=== PATIENT | female | born 1990 | race Caucasian/White ===

== ENCOUNTER 2019-11-20 12:20 | Emergency (ER) | payer OTHER ==
[2019-11-20 12:27] VITALS: BP 116/78; PULSE 80; TEMP 98.2; BMI 25.2
[2019-11-20 12:58] LABS: AMORP PHOS 1+ /hpf (NONE SEEN); EPITHELIAL CELLS FEW /hpf; URINE MUCUS 1+
--- NOTE | 2019-11-20 13:12 | PDOC ---
History of Present Illness - General Chief Complaint: Pain Stated Complaint: LEFT PELVIC PAIN Time Seen by Provider: 11/20/19 12:25 - History of Present Illness Initial Comments: 11/20/19 15:34 Chief complaint: Lower abdominal pain HPI: Patient complains of suprapubic and left lower quadrant pain for about 1 week. No nausea vomiting or diarrhea. She has recurrent ovarian cysts diagnosed on ultrasound and CT scan, occurring almost every month, although she had no symptoms during August and September. She has been seen numerous times by program support assistant and has had numerous emergency room visits. Pain medications do not usually help. She voices the desire to have her "cyst removed". Review of systems: As noted above, denies nausea, vomiting, diarrhea. Denies fever/chills, URI symptoms, sore throat, cough, chest pain, shortness of breath , vaginal bleeding or discharge, urinary symptoms including dysuria frequency urgency hesitancy or hematuria. She admits to having a "migraine headache", which occur frequently, for which she takes no specific medication by choice. Past medical history: Recurrent ovarian cysts, IUD since 2018, intolerant to other control measures such as oral contraceptives, implantable contraceptives, and NuvaRing. 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 Family history: Reviewed and noncontributory Physical exam: Alert and oriented well-developed well-nourished no acute distress cooperative, although somewhat hostile, feeling that nobody is able to do anything about her recurrent cysts. She would like them "removed" Afebrile, vital signs normal HEENT normal Neck supple without bruit mass or nodes Chest clear CV regular without murmur rub or gallop Abdomen nondistended. Bowel sounds normal. Soft without mass organomegaly. There is mild tenderness to deep palpation in the suprapubic area, and the right and left lower quadrants. There is no guarding or rebound. There is no CVAT Impression: Recurrent ovarian cyst, rule out UTI. No other sign or symptom of acute peritonitis or other intra-abdominal disease Plan: Urinalysis, test, and ultrasound, further evaluation depending on results. Past History - Past Medical History Allergies/Adverse Reactions: Allergies Allergy/AdvReac Type Severity Reaction Status Date / Time amoxicillin Allergy Hives Verified 11/20/19 12:22 cefoxitin Allergy Hives Verified 11/20/19 12:22 ciprofloxacin [From Cipro] Allergy Hives Verified 11/20/19 12:22 clindamycin Allergy Hives Verified 11/20/19 12:22 gentamicin Allergy Hives Verified 11/20/19 12:22 metronidazole Allergy Hives Verified 11/20/19 12:22 Home Medications: Ambulatory Orders Cetirizine HCl [Zyrtec -] 10 mg PO DAILY PRN 11/20/19 Diclofenac Sodium 75 mg PO BID PRN #20 tablet. 11/20/19 COPD: No Disorders: Yes (ovarian cysts) Other medical history: migraine headaches, seasonal/envtal allergies - Surgical History Cholecystectomy: Yes (11/2018) - Reproductive History Is Patient Now?: No - Psycho Social/Smoking Cessation Hx Smoking History: Never smoked Have you smoked in the past 12 months: No Information on smoking cessation initiated: No Hx Alcohol Use: No *Physical Exam - Vital Signs Last Vital Signs Temp Pulse Resp BP Pulse Ox 98.2 F 80 16 116/78 100 11/20/19 12:20 11/20/19 12:20 11/20/19 12:20 11/20/19 12:20 11/20/19 12:20 ED Treatment Course - ADDITIONAL ORDERS Additional order review: Laboratory Results 11/20/19 11/20/19 12:25 12:25 Urine Color Yellow Urine Appearance Slightly Urine pH >= 9.0 H Urine Protein Trace Urine Glucose (UA) Negative Urine Ketones Negative Urine Blood Negative Urine Nitrite Negative Urine Bilirubin Negative Urine Urobilinogen 0.2 Ur Leukocyte Esterase Trace H Urine RBC Rare Urine WBC 0-2 Ur Transition Epith Cell Few Amorphous Phosphates 1+ Urine Bacteria Few Urine Mucus 1+ Urine HCG, Qual Negative Medical Decision Making - Medical Decision Making 11/20/19 15:42 Urinalysis clear. test negative Ultrasound shows a complex cyst on the right. No free fluid. IUD is in good position. Minimal endometrial reaction The nature of ovarian cyst was discussed with the patient, and it was recommended that she be given stronger pain medication if her pain is not controlled. She refused any additional medication. She was instructed to follow-up with [facility] to discuss other options. Fully ambulatory and in no significant pain or other distress at discharge. Told to return to the ER if the pain worsened or if associated symptoms such as fever, chills, nausea, vomiting, diarrhea developed. Discharge - Discharge Information Problems reviewed: Yes Clinical Impression/Diagnosis: Ovarian cyst, complex Condition: Stable Disposition: HOME - Admission No - Additional Discharge Information Prescriptions: Diclofenac Sodium 75 mg PO BID PRN #20 tablet.dr RICKS Reason: Pain - Follow up/Referral Referrals: Connie Almaguer MD [Staff Physician] - 1 week - Patient Discharge Instructions Patient Printed Discharge Instructions: DI for Ovarian Cyst - Post Discharge Activity Work/Back to School Note: Back to Work
[2019-11-20] MEDS ORDERED: METOCLOPRAMIDE HCL 10 MG TABLET (FP) PO ONE ×2 (13:13→13:16)
[2019-11-20] MEDS ORDERED: IBUPROFEN 400 MG TABLET (FP) PO ONE ×2 (13:13→13:16)
== END 2019-11-20 15:50 | disposition home or self-care (01) ==
LOC: FER 12:20
DX: N83.299 Other ovarian cyst, unspecified side (principal)
CPT/HCPCS: 76856-TC; 81003; 81015; 84703; 99284-25